=== PATIENT | female | born 2000 | race Caucasian/White ===

== ENCOUNTER 2020-06-19 23:37 | Emergency (ER) | payer OTHER ==
[2020-06-20] MEDS ORDERED: NORMAL SALINE 1000 ML 1,000 ML IV ONE (01:25)
--- NOTE | 2020-06-20 01:27 | ER Document Report ---
ED Medical Screen (RME) - General Chief Complaint: OB Problem (<20wks) Stated Complaint: ABNORMAL VAGINAL BLEEDING Time Seen by Provider: 06/20/20 01:24 Mode of Arrival: Ambulatory Information source: Patient Notes: Patient is a 20-year-old female who comes in today with possible miscarriage. 2 nights ago she started having vaginal bleeding at approximately 10 weeks gestation. Yesterday her bleeding had subsided and today she has had persistent bleeding. Concerned that she miscarried. Physical exam General: No acute distress Cardio: Regular rate and rhythm Pulmonary: No respiratory distress Abdomen nontender nondistended Neuro: No focal deficits I have greeted and performed a rapid initial assessment of this patient. A comprehensive ED assessment and evaluation of the patient, analysis of test results and completion of the medical decision making process will be conducted by additional ED providers. Physical Exam - Vital signs Vitals: Temp Pulse Resp BP Pulse Ox 99 F 105 H 16 120/56 L 100 06/20/20 00:04 06/20/20 00:04 06/20/20 00:04 06/20/20 00:04 06/20/20 00:04 Course - Vital Signs Vital signs: Temp Pulse Resp BP Pulse Ox 99 F 105 H 16 120/56 L 100 06/20/20 00:04 06/20/20 00:04 06/20/20 00:04 06/20/20 00:04 06/20/20 00:04
[2020-06-20 02:39] LABS: ABSOLUTE LYMPHOCYTES (AUTO) 1.5 10^3/uL (0.5-4.7); ABSOLUTE MONOCYTES (AUTO) 0.4 10^3/uL (0.1-1.4); ABSOLUTE NEUT (AUTO) 5.8 10^3/uL (1.7-8.2); BASOPHILS % (AUTO) 0.3 % (0-2); EOSINOPHILS % (AUTO) 0.4 % (0-6); HEMATOCRIT 32.9 % (36.0-47.0); HEMOGLOBIN 10.8 g/dL (12.0-15.5); LYMPHOCYTES % (AUTO) 19.5 % (13-45); MEAN CORPUSCULAR HEMOGLOBIN 22.7 pg (27.0-33.4); MEAN CORPUSCULAR HGB CONC 32.7 g/dL (32.0-36.0); MEAN CORPUSCULAR VOLUME 69 fl (80-97); MONOCYTES % (AUTO) 4.8 % (3-13); PLATELET COUNT 173 10^3/uL (150-450); RED BLOOD COUNT 4.75 10^6/uL (3.72-5.28); RED CELL DISTRIBUTION WIDTH 18.3 % (11.5-14.0); TOTAL CELLS COUNTED % (AUTO) 100 %; WHITE BLOOD COUNT 7.8 10^3/uL (4.0-10.5)
[2020-06-20 03:07] LABS: ALBUMIN 3.8 g/dL (3.5-5.0); ALKALINE PHOSPHATASE 79 U/L (38-126); ANION GAP 8 (5-19); ASPARTATE AMINO TRANSFERASE 29 U/L (14-36); BILIRUBIN,DIRECT 0.2 mg/dL (0.0-0.4); BILIRUBIN,TOTAL 0.5 mg/dL (0.2-1.3); BLOOD UREA NITROGEN 12 mg/dL (7-20); CARBON DIOXIDE 23 mmol/L (22-30); CHLORIDE 106 mmol/L (98-107); GLUCOSE 110 mg/dL (75-110); TOTAL PROTEIN 6.2 g/dL (6.3-8.2)
--- NOTE | 2020-06-20 03:35 | RADIOLOGY REPORT (SQ) ---
Ultrasound of the pelvis: 06/20/2020 2:33 AM CDT HISTORY: 20-year-old patient with concern for . TECHNIQUE: Multiple grayscale and color Doppler images of the pelvis were obtained transvaginally. COMPARISON: None available FINDINGS: The uterus measures 7.4 x 3.8 x 4.4 cm. The endometrium measures 11-12 mm in thickness. No intrauterine gestational sac is seen. No myometrial mass is seen. The right ovary measures 4.1 x 2.3 x 2.7 cm. The left ovary measures 3.0 x 2.1 x 3.0 cm. Normal arterial waveforms were obtained from both ovaries. Trace free intraperitoneal fluid is seen within the posterior cul-de-sac. IMPRESSION: No intrauterine gestational sac is seen. Correlation with quantitative beta hCG levels is recommended. There is trace free intraperitoneal fluid within the posterior cul-de-sac.
[2020-06-20 03:55] LABS: APPEARANCE,URINE CLEAR; BILIRUBIN,URINE NEGATIVE (NEGATIVE); COLOR,URINE YELLOW; GLUCOSE, URINE NEGATIVE (NEGATIVE); KETONES,URINE NEGATIVE (NEGATIVE); PROTEIN,URINE NEGATIVE (NEGATIVE); URINE SPECIFIC GRAVITY 1.015; UROBILINOGEN,URINE NEGATIVE mg/dL (<2.0)
--- NOTE | 2020-06-20 03:56 | ER Document Report ---
HPI - HPI Time Seen by Provider: 06/20/20 01:24 Pain Level: Denies Notes: 20-year-old female presents to the emergency department with complaints of vaginal bleeding in the setting of . Patient reports she is 10 weeks . She states she has had home test that were positive. She states she has been bleeding over the last few days however today it has resolved. She decided to come into the emergency department to get checked out. She denies any acute complaints at this time. - ROS Systems Reviewed and Negative: Yes All other systems reviewed and negative - CONSTITUTIONAL Constitutional: DENIES: Fever, Chills - EENT EENT: DENIES: Sore Throat, Ear Pain, Eye problems - NEURO Neurology: DENIES: Headache, Weakness, Vision blurred, Dizzinesss / Vertigo - CARDIOVASCULAR Cardiovascular: DENIES: Chest pain - RESPIRATORY Respiratory: DENIES: Trouble Breathing, Coughing - GASTROINTESTINAL Gastrointestinal: REPORTS: Abdominal Pain. DENIES: Black / Bloody Stools - URINARY Urinary: DENIES: Dysuria, Urgency, Frequency - REPRODUCTIVE Reproductive: REPORTS: : Notes: vaginal bleeding - MUSCULOSKELETAL Musculoskeletal: DENIES: Extremity pain Past Medical History - General Information source: Patient Last Menstrual Period: 3 months - Social History Smoking Status: Never Smoker Family History: None Patient has homicidal ideation: No Malignancy Medical History: Reports: Hx Brain Cancer - Reported by patient Vertical Provider Document - CONSTITUTIONAL Notes: PHYSICAL EXAMINATION: GENERAL: Well-appearing, well-nourished and in no acute distress. HEAD: Atraumatic, normocephalic. EYES: Pupils equal round and reactive to light, extraocular movements intact, conjunctiva are normal. ENT: Nares patent, oropharynx clear without exudates. Moist mucous membranes. NECK: Normal range of motion, supple without lymphadenopathy LUNGS: Breath sounds clear to auscultation bilaterally and equal. No wheezes rales or rhonchi. HEART: Regular rate and rhythm without murmurs ABDOMEN: Soft, nontender, nondistended abdomen. No guarding, no rebound. No masses appreciated. Female : deferred Musculoskeletal: Normal range of motion, no pitting or edema. No cyanosis. NEUROLOGICAL: Cranial nerves grossly intact. Normal speech, normal gait. Normal sensory, motor exams PSYCH: Normal mood, normal affect. SKIN: Warm, Dry, normal turgor, no rashes or lesions noted. Course - Re-evaluation Re-evalutation: Laboratory 06/20/20 06/20/20 06/20/20 02:00 02:00 02:24 WBC 7.8 RBC 4.75 Hgb 10.8 L Hct 32.9 L MCV 69 L MCH 22.7 L MCHC 32.7 RDW 18.3 H Plt Count 173 Lymph % (Auto) 19.5 [place] % (Auto) 4.8 Eos % (Auto) 0.4 Baso % (Auto) 0.3 Absolute Neuts (auto) 5.8 Absolute Lymphs (auto) 1.5 Absolute Monos (auto) 0.4 Absolute Eos (auto) 0.0 Absolute Basos (auto) 0.0 Seg Neutrophils % 75.0 Sodium 137.2 Potassium 4.0 Chloride 106 Carbon Dioxide 23 Anion Gap 8 BUN 12 Creatinine 0.62 Est GFR ( Amer) > 60 Est GFR (MDRD) Non-Af > 60 Glucose 110 Calcium 9.0 Total Bilirubin 0.5 Direct Bilirubin 0.2 Neonat Total Bilirubin Not Reportable Neonat Direct Bilirubin Not Reportable Neonat Indirect Bili Not Reportable AST 29 ALT 19 Alkaline Phosphatase 79 Total Protein 6.2 L Albumin 3.8 Beta HCG, Quant < 2.39 Total Beta HCG NEGATIVE Urine Color Urine Appearance Urine pH Ur Specific [place] Urine Protein Urine Glucose (UA) Urine Ketones Urine Blood Urine Nitrite (Reflex) Urine Bilirubin Urine Urobilinogen Leukocyte Esterase Rfl Urine WBC (Reflex) Squamous Epi Cells Auto Urine Mucus (Auto) Urine Ascorbic Acid Blood Type Cancelled Rhogam Indicated 06/20/20 06/20/20 02:24 03:40 WBC RBC Hgb Hct MCV MCH MCHC RDW Plt Count Lymph % (Auto) [place] % (Auto) Eos % (Auto) Baso % (Auto) Absolute Neuts (auto) Absolute Lymphs (auto) Absolute Monos (auto) Absolute Eos (auto) Absolute Basos (auto) Seg Neutrophils % Sodium Potassium Chloride Carbon Dioxide Anion Gap BUN Creatinine Est GFR ( Amer) Est GFR (MDRD) Non-Af Glucose Calcium Total Bilirubin Direct Bilirubin Neonat Total Bilirubin Neonat Direct Bilirubin Neonat Indirect Bili AST ALT Alkaline Phosphatase Total Protein Albumin Beta HCG, Quant Total Beta HCG Urine Color YELLOW Urine Appearance CLEAR Urine pH 7.0 Ur Specific [place] 1.015 Urine Protein NEGATIVE Urine Glucose (UA) NEGATIVE Urine Ketones NEGATIVE Urine Blood NEGATIVE Urine Nitrite (Reflex) NEGATIVE Urine Bilirubin NEGATIVE Urine Urobilinogen NEGATIVE Leukocyte Esterase Rfl NEGATIVE Urine WBC (Reflex) 1 Squamous Epi Cells Auto 1 Urine Mucus (Auto) RARE Urine Ascorbic Acid NEGATIVE Blood Type A POSITIVE Rhogam Indicated RHOGAM NOT INDICATED Transvaginal US 06/20/20 01:24 IMPRESSION: No intrauterine gestational sac is seen. Correlation with quantitative beta hCG levels is recommended. There is trace free intraperitoneal fluid within the posterior cul-de-sac. Patient's work-up today shows that she is in fact not . Serum hCG is negative. Transvaginal ultrasound is also negative. Patient given ED return precautions, patient verbalized understanding and agreement with same. - Vital Signs Vital signs: Temp Pulse Resp BP Pulse Ox 99 F 105 H 16 120/56 L 100 06/20/20 00:04 06/20/20 00:04 06/20/20 00:04 06/20/20 00:04 06/20/20 00:04 - Laboratory Result Diagrams: 06/20/20 02:00 06/20/20 02:00 Laboratory results interpreted by me: 06/20/20 06/20/20 02:00 02:00 Hgb 10.8 L Hct 32.9 L MCV 69 L MCH 22.7 L RDW 18.3 H Total Protein 6.2 L Discharge - Discharge Clinical Impression: Vaginal bleeding Condition: Stable Disposition: HOME, SELF-CARE Additional Instructions: Your test here in the emergency department today and your blood work was negative. Please follow-up with a wind project manager regarding your irregular vaginal bleeding. Return to the emergency department with any new or life-thre atening concerns. Forms: Return to Work
[2020-06-20 04:20] VITALS: BP 121/77
== END 2020-06-20 04:20 | disposition home or self-care (01) ==
LOC: ER 23:37
DX: N93.8 Other specified abnormal uterine and vaginal bleeding (principal); Z32.02 Encounter for pregnancy test, result negative
CPT/HCPCS: 99285; 96360; 86900; 86901; 36415; 84702; 85025; 80053; 81001; 76817; 93976; J7030